=== PATIENT | female | born 1955 | race Caucasian/White ===

== ENCOUNTER 2017-07-22 11:59 | Emergency (ER) | payer OTHER ==
[2017-07-22 12:13] VITALS: BP 152/95
[2017-07-22 12:36] LABS: Hematocrit 35.7 % (37.0-47.0); Hemoglobin 12.6 gm/dL (12.5-16.0); Mean Corpuscular Hemoglobin 31.4 pg (27-31); Mean Corpuscular Hgb Conc 35.3 g/dl (32-36); Mean Platelet Volume 9.4 fl (6.0-9.5); Neutrophil # 3.3 K/mm3 (1.3-6.0); Neutrophil % 60.3 % (42-75.0); Platelet Count 281 K/mm3 (150-450); Red Blood Count 4.01 M/mm3 (4.2-5.4); White Blood Count 5.5 K/mm3 (4.0-10.5)
[2017-07-22 12:55] LABS: Urine Appearance Clear; Urine Bacteria 1+; Urine Bilirubin Negative (NEGATIVE); Urine Blood 10 /ul (NEGATIVE); Urine Color Yellow; Urine Ketone Negative (NEGATIVE); Urine Nitrite Negative (NEGATIVE); Urine Protein Negative (NEGATIVE); Urine RBC TRACE /hpf (0-5); Urine Specific Gravity 1.015 SP.GR. (1.005-1.010); Urine Urobilinogen Normal (NORMAL); Urine WBC TRACE /hpf (0-5)
[2017-07-22 12:56] LABS: Albumin * 3.7 gm/dl (3.4-5.0); Anion Gap 11.8 mmol/L (6.8-13.8); BUN/Creatinine Ratio 23.5 (9.0-21.6); Bilirubin, Total 0.7 mg/dL (0.0-1.1); Ca. Corrected For Albumin 8.7 mg/dL (8.4-10.2); Calcium * 8.8 mg/dL (7.9-10.9); Carbon Dioxide 25.9 mmol/L (24-32.6); Potassium 3.7 mmol/L (3.4-4.6); Total Protein 6.8 gm/dL (6.2-8.2)
[2017-07-22] MEDS ORDERED: MORPHINE SULFATE 4 MG/ML SYRG ONE (12:58)
[2017-07-22] MEDS ORDERED: MORPHINE SULFATE 4 MG/ML SYRG SC ONE (12:58)
--- NOTE | 2017-07-22 13:24 | ERNOTE ---
Abdominal HPI - General Chief Complaint: Abdominal Pain Time Seen by Provider: 07/22/17 12:26 Source: patient, family Exam Limitations: no limitations - Immun/Allergies/Home Medications Immunizatons: IMMUNIZATION HX Immunizations Up to Date Yes History of Influenza Vaccine No Hx Pneumococcal Vaccination No Allergies/Adverse Reactions: Allergies amoxicillin [From Augmentin] Allergy (Verified 07/22/17 12:19) clavulanic acid [From Augmentin] Allergy (Verified 07/22/17 12:19) Home Medications: HOME MEDICATIONS Ascorbic Acid [Vitamin C] 1,000 mg PO DAILY 07/22/17 [Last Taken Unknown] Calcium Carb, Cit/Magnesium Ox [Calmag Thins Tablet] 1 each PO DAILY 07/22/17 [ Last Taken Unknown] Cholecalciferol (Vitamin D3) [Vitamin D3] 1,000 unit PO DAILY 07/22/17 [Last Taken Unknown] Cyclobenzaprine HCl [Flexeril] 10 mg PO TID PRN #30 tab 07/22/17 [Last Taken Unknown] Fluticasone Propionate [Flonase] 1 spray NS DAILY 07/22/17 [Last Taken Unknown] Gabapentin [Neurontin] 300 mg PO BID 07/22/17 [Last Taken Unknown] Loratadine 10 mg PO DAILY 07/22/17 [Last Taken Unknown] Losartan/Hydrochlorothiazide [Losartan-Hctz 100-12.5 mg Tab] 1 each PO DAILY 07/29 [Last Taken Unknown] Naproxen [Naprosyn] 500 mg PO BID #60 tablet 07/22/17 [Last Taken Unknown] Omeprazole 40 mg PO DAILY 07/22/17 [Last Taken Unknown] Zolpidem Tartrate [Ambien] 5 mg PO HS 07/22/17 [Last Taken Unknown] traMADol HCL [Ultram] 50 mg PO QID PRN #20 tablet 07/22/17 [Last Taken Unknown] - History of Present Illness Narrative: At between 10:30 and 11:00 this morning patient developed pain in the right upper quadrant with some pain present in the right flank as well. She describes the pain as colicky or crampy in nature however she denies any nausea or vomiting. She also denies any loose stools, flatulence or pain in the right shoulder. She has never encountered this type of pain in the past and is here for evaluation. Timing: other Quality: moderate - improving, cramping, other - colicky Activities at Onset: none Associated Symptoms: Present: denies symptoms Prior Abdominal Problems: Present: none Review of Systems - Review of Systems Constitutional: Present: See HPI EYE: Present: no symptoms reported ENT: Present: no symptoms reported Respiratory: Present: no symptoms reported Cardiology: Present: no symptoms reported Gastrointestinal/Abdominal: Present: abdominal pain - right upper quadrant Genitourinary: Present: no symptoms reported, other - right flank pain Musculoskeletal: Present: no symptoms reported Skin: Present: no symptoms reported Neurological: Present: no symptoms reported Endocrine: Present: no symptoms reported Hematologic/Lymphatic: Present: no symptoms reported Psych: Present: no symptoms reported - Patient's Past Medical History Patient History - Medical: Anxiety, Depression, Headache, Other Patient History - Cardiac/Respiratory: Bronchitis, Hypertension Patient History - Cancer: No Hx of Cancer Patient History - Surgical Procedures: Colonoscopy, Hysterectomy, Other Patient History - Other: None - Social History Abuse History: No History of abuse Psych History: No pertinent hx Smoking Status: Never smoker Have you smoked in the past 12 months: No - Immunizations Immunizations Up to Date: Yes Hx Pneumococcal Vaccination: No History of Influenza Vaccine: No Physical Exam - Physical Exam General Appearance: Present: wd/wn, alert, mild distress Eye Exam: Normal inspection: bilateral, PERRL: bilateral Ears, Nose, Throat: Present: normal ENT inspection, H, normal pharynx Neck: Present: normal inspection, nontender Respiratory: Present: no respiratory distress, normal breath sounds, no accessory muscle use, chest nontender, lungs clear Cardiovascular/Chest: Present: regular rate, rhythm, no murmur, normal peripheral pulses Gastrointestinal/Abdominal: Present: normal bowel sounds, nondistended, soft, no organomegaly, Trent sign - equivocal Rectal Exam: Present: deferred Back Exam: Present: normal range of motion, CVA tenderness (R) Extremity Exam: Present: normal inspection, non-tender, no edema, normal range of motion Neurological Exam: Present: alert, oriented, normal mood/affect Skin Exam: Present: normal color, warm/dry Lymphatic Exam: Present: no adenopathy ED Progress - Results and Orders Patient's Lab Results:: I have reviewed the patient's lab results. - Vital Signs Patient's Vital Signs:: I have reviewed the patient's vital signs. Vital Signs: Vital Signs 07/22/17 12:08 Temperature 37.2 C Pulse Rate 66 Respiratory 14 Rate Blood Pressure 152/95 O2 Sat by Pulse 99 Oximetry - X-Ray X-Ray #1 X-Ray: abdomen Interpretation: Reviewed by me - CT/Ultrasound CT/Ultrasound Narrative: CT of the abdomen and pelvis was reviewed by me. Ultrasound of the gallbladder was reviewed by me as well. - Progress/Reassessment Chief Complaint: Abdominal Pain Plan - Plan Plan: Unclear etiology as to the nature of this pain however given the blood and urine is entirely possible that the patient passed a kidney stone. Patient will be given a prescription for pain medication and she will follow-up with her family physician next week. Departure Clinical Impression: Renal colic on right side Back pain Qualifiers: Back pain location: low back pain Chronicity: acute Back pain laterality: right Sciatica presence: without sciatica Qualified Code(s): M54.5 - Low back pain - Departure Disposition: Home self-care Condition: Good Instructions: Renal Colic, [id number], Back Pain, Adult Referrals: Agnes Del Cid MD [Primary Care Provider] - Prescriptions: Cyclobenzaprine HCl [Flexeril] 10 mg PO TID PRN #30 tab PRN Reason: MUSCLE SPASMS Naproxen [Naprosyn] 500 mg PO BID #60 tablet traMADol HCL [Ultram] 50 mg PO QID PRN #20 tablet PRN Reason: Moderate Pain
== END 2017-07-22 15:45 | disposition home or self-care (01) ==
LOC: ER 11:59
DX: N23 Unspecified renal colic (principal); M54.5 Low back pain; I10 Essential (primary) hypertension; F41.8 Other specified anxiety disorders